=== PATIENT | male | born 1965 | race Caucasian/White ===

== ENCOUNTER 2024-04-19 13:46 | Emergency (ER) | payer MEDICAID ==
[2024-04-19 14:09] VITALS: TEMP 98
--- NOTE | 2024-04-19 14:10 | ERPHSYRPT ---
- History of Present Illness Time Seen by Provider: 04/19/24 14:10 Source: patient Exam Limitations: no limitations Patient Subjective Stated Complaint: C/O head injury. Patient indicates that he fell on the ice about 2 weeks ago and hit his head; denies loss of conciousness. States he fell again last weekend and hit his head again; still denies loss of conciousness. States he has been having increased agitation, mood swings, head aches since the falls have taken place. Triage Nursing Assessment: Patient ambulated back to ER without difficulties. He is alert and oriented. No SOB. Skin tone normal. LARSEN WNL. Physician History: This is a 58-year-old white male patient who arrives by private vehicle and does not have a primary care provider. Documentation on the chart with the complaint of headache, agitation, mood swings intermittently over the last 2 weeks. 2 weeks ago, patient slipped on ice and fell hitting the back of his head. He does report some bleeding from his nose at that time and nasal congestion. He did not lose consciousness. Last week, patient tripped and fell and hit the back of his head. Since that time he has had the above-stated symptoms. Patient took an ibuprofen and a muscle relaxer prior to arrival. Patient is on trazodone he has a history of hypothyroidism. He denies chest pain. He denies shortness of breath. He has no abdominal pain. He has no extremity pain. Occurred: other (Fell and hit his head twice in the last couple weeks) Reason for Fall: slipped, tripped Injuries/Pain Location: head Loss of Consciousness: no loss of consciousness Quality: aching (Headache) Severity of Pain-Max: mild Severity of Pain-Current: mild Associated Symptoms (Fall): headache, other (Mildly agitated, mood swings. These are new symptoms for him in the last couple weeks after his fall), No confusion, No chest pain, No vision changes Allergies/Adverse Reactions: bee venom protein (honey bee) Allergy (Verified 04/19/24 13:55) Home Medications: Levothyroxine Sodium 50 Mcg [Synthroid 50 Mcg] 50 mcg PO CLARIFY 04/19/24 [History] Trazodone HCl 50 mg [Desyrel 50 mg] 50 mg PO HS 04/19/24 [History] Hx Influenza Vaccination/Date Given: No Hx Pneumococcal Vaccination/Date Given: No Immunizations Up to Date: No Travel Risk - International Travel Have you traveled outside of the country in past 3 weeks: No - Emerging Infectious Disease Are you exhibiting symptoms associated with any current EIDs: No - Review of Systems Constitutional: No Symptoms Eyes: No Symptoms Ears, Nose, & Throat: No Symptoms Respiratory: No Symptoms Cardiac: No Symptoms Abdominal/Gastrointestinal: No Symptoms Genitourinary Symptoms: No Symptoms Skin: No Symptoms Neurological: Headache, Irritability Psychological: No Symptoms Endocrine: No Symptoms Hematologic/Lymphatic: No Symptoms Immunological/Allergic: No Symptoms All Other Systems: Reviewed and Negative - Past Medical History Pertinent Past Medical History: Yes Endocrine Medical History: Hypothyroidism GI Medical History: GERD Other Medical History: Insomnia, throat CA, pinched nerve in cervical spine, "flap that doesn't close all the way in my esophagus." - Past Surgical History Past Surgical History: Yes Musculoskeletal: Other Other Surgical History: neck surgery X 2, toe to right foot X 3, right ankle with a plate/hardware in it, power port placed and removed, peg tube placed and removed. - Social History Smoking Status: Never smoker - Social Determinants of Health Will the patient participate in the screening: Declined to provide - Nursing Vital Signs Nursing Vital Signs: Initial Vital Signs Temperature 98 F 04/19/24 13:57 Pulse Rate 90 04/19/24 13:57 Respiratory Rate 16 04/19/24 13:57 Blood Pressure 186/106 04/19/24 13:57 O2 Sat by Pulse Oximetry 98 04/19/24 13:57 Pain Scale Pain Intensity 0 - Jarrod Coma Score Best Eye Response (Jarrod): (4) open spontaneously Best Verbal Response ([place]): (5) oriented Best Motor Response (Jarrod): (6) obeys commands [place] Total: 15 - Physical Exam General Appearance: no apparent distress, alert Head Injury: no evidence of injury Eye Exam: PERRL/EOMI, eyes nml inspection ENT Exam: airway nml, nml ext.inspection Neck Exam: supple, trachea midline, full range of motion, normal alignment, normal inspection Respiratory/Chest Exam: No chest tenderness, No respiratory distress Gastrointestinal Exam: No tenderness Rectal Exam: not done Back Exam: normal inspection, normal range of motion, No CVA tenderness, No vertebral tenderness Extremity Exam: normal inspection, normal range of motion, pelvis stable Neurologic Exam: alert, oriented x 3, cooperative, director of solutions architecture II-XII nml as tested, nml cerebellar function, nml station & gait, sensation nml Skin Exam: normal color, warm, dry SpO2 Interpretation: normal SpO2: 98 O2 Delivery: Room Air - Course Nursing assessment & vital signs reviewed: Yes Ordered Tests: Active Orders 24 hr Category Date Time Status CERVICAL SPINE WO CONTRAST [CT] Stat Exams 04/19/24 14:20 Completed HEAD WITHOUT CONTRAST [CT] Stat Exams 04/19/24 14:20 Completed CBC W DIFF Stat Lab 04/19/24 14:36 Completed CMP Stat Lab 04/19/24 14:36 Completed MAG [MAGNESIUM] Stat Lab 04/19/24 14:36 Completed UA W/RFX UR CULTURE Stat Lab 04/19/24 14:33 Completed Urine Triage Profile Stat Lab 04/19/24 14:33 Completed Lab/Rad Data: Laboratory Result Diagrams 04/19/24 14:36 04/19/24 14:36 Laboratory Results 04/19/24 04/19/24 04/19/24 Range/Units 14:36 14:36 14:33 WBC 4.0 L (4.23-9.07) x10^3/uL RBC 4.83 (4.63-6.08) x10^6/uL Hgb 14.1 (13.7-17.5) g/dL Hct 41.2 (40.1-51.0) % MCV 85.3 (79.0-92.2) fL MCH 29.2 (25.7-32.2) pg MCHC 34.2 (32.3-36.5) g/dL RDW 12.8 (11.6-14.4) % Plt Count 166 (163-337) x10^3/uL MPV 10.5 (9.4-12.4) fL Gran % 61.7 (34.0-67.9) % Immature Gran % (Auto) 0.8 H (0.001-0.429) % Nucleat RBC Rel Count 0.0 (0.00-0.2) % Eos # (Auto) 0.05 (0.04-0.54) x10^3/uL Immature Gran # (Auto) 0.03 (0.001-0.031) x10^3u/L Absolute Lymphs (auto) 0.69 L (1.32-3.57) x10^3/uL Absolute Monos (auto) 0.72 (0.30-0.82) x10^3/uL Absolute Nucleated RBC 0.00 (0.00-0.012) x10^3u/L Lymphocytes % 17.5 L (21.8-53.1) % Monocytes % 18.2 H (5.3-12.2) % Eosinophils % 1.3 (0.8-7.0) % Basophils % 0.5 (0.2-1.2) % Absolute Granulocytes 2.44 (1.78-5.38) x10^3/uL Basophils # 0.02 (0.01-0.08) x10^3/uL Sodium 143 (135-145) mmol/L Potassium 3.8 (3.5-5.1) mmol/L Chloride 105 (98-107) mmol/L Carbon Dioxide 29 (22-30) mmol/L Anion Gap 13.0 (5-15) MEQ/L BUN 11 (9-20) mg/dL Creatinine 0.77 (0.66-1.25) mg/dL Estimated GFR 104.4 ML/MIN Glucose 91 (74-106) mg/dL Calcium 9.2 (8.4-10.2) mg/dL Magnesium 2.1 (1.6-2.3) mg/dL Total Bilirubin 0.80 (0.2-1.3) mg/dL AST 36 (17-59) U/L ALT 39 (0-50) U/L Alkaline Phosphatase 82 (38-126) U/L Serum Total Protein 6.8 (6.3-8.2) g/dL Albumin 4.2 (3.5-5.0) g/dL Urine Color (Yellow) Urine Appearance (Clear) Urine pH (4.6-8.0) Ur Specific [place] (1.005-1.030) Urine Protein (Negative) Urine Glucose (UA) (Negative) mg/dL Urine Ketones (Negative) Urine Blood (Negative) Urine Nitrite (Negative) Urine Bilirubin (Negative) Urine Urobilinogen (0.2) mg/dL Ur Leukocyte Esterase (Negative) U Hyaline Cast (Auto) (0-2) /LPF Urine Microscopic RBC (0-5) /HPF Urine Microscopic WBC (0-5) /HPF Ur Epithelial Cells (None Seen) /HPF Urine Bacteria (None Seen) /HPF Urine Culture Reflexed (NO) Urine Opiates Level NEGATIVE (NEGATIVE) Ur Methadone NEGATIVE (NEGATIVE) Urine Barbiturates NEGATIVE (NEGATIVE) Ur Phencyclidine (PCP) NEGATIVE (NEGATIVE) Urine Amphetamine NEGATIVE (NEGATIVE) U Benzodiazepine Level NEGATIVE (NEGATIVE) Urine Cocaine NEGATIVE (NEGATIVE) Urine Marijuana (THC) NEGATIVE (NEGATIVE) 04/19/24 Range/Units 14:33 WBC (4.23-9.07) x10^3/uL RBC (4.63-6.08) x10^6/uL Hgb (13.7-17.5) g/dL Hct (40.1-51.0) % MCV (79.0-92.2) fL MCH (25.7-32.2) pg MCHC (32.3-36.5) g/dL RDW (11.6-14.4) % Plt Count (163-337) x10^3/uL MPV (9.4-12.4) fL Gran % (34.0-67.9) % Immature Gran % (Auto) (0.001-0.429) % Nucleat RBC Rel Count (0.00-0.2) % Eos # (Auto) (0.04-0.54) x10^3/uL Immature Gran # (Auto) (0.001-0.031) x10^3u/L Absolute Lymphs (auto) (1.32-3.57) x10^3/uL Absolute Monos (auto) (0.30-0.82) x10^3/uL Absolute Nucleated RBC (0.00-0.012) x10^3u/L Lymphocytes % (21.8-53.1) % Monocytes % (5.3-12.2) % Eosinophils % (0.8-7.0) % Basophils % (0.2-1.2) % Absolute Granulocytes (1.78-5.38) x10^3/uL Basophils # (0.01-0.08) x10^3/uL Sodium (135-145) mmol/L Potassium (3.5-5.1) mmol/L Chloride (98-107) mmol/L Carbon Dioxide (22-30) mmol/L Anion Gap (5-15) MEQ/L BUN (9-20) mg/dL Creatinine (0.66-1.25) mg/dL Estimated GFR ML/MIN Glucose (74-106) mg/dL Calcium (8.4-10.2) mg/dL Magnesium (1.6-2.3) mg/dL Total Bilirubin (0.2-1.3) mg/dL AST (17-59) U/L ALT (0-50) U/L Alkaline Phosphatase (38-126) U/L Serum Total Protein (6.3-8.2) g/dL Albumin (3.5-5.0) g/dL Urine Color Yellow (Yellow) Urine Appearance Clear (Clear) Urine pH 6.0 (4.6-8.0) Ur Specific [place] 1.015 (1.005-1.030) Urine Protein Negative (Negative) Urine Glucose (UA) Negative (Negative) mg/dL Urine Ketones Negative (Negative) Urine Blood Negative (Negative) Urine Nitrite Negative (Negative) Urine Bilirubin Negative (Negative) Urine Urobilinogen 0.2 (0.2) mg/dL Ur Leukocyte Esterase Negative (Negative) U Hyaline Cast (Auto) NONE SEEN (0-2) /LPF Urine Microscopic RBC 0-2 (0-5) /HPF Urine Microscopic WBC 0-2 (0-5) /HPF Ur Epithelial Cells None Seen (None Seen) /HPF Urine Bacteria None Seen (None Seen) /HPF Urine Culture Reflexed NO (NO) Urine Opiates Level (NEGATIVE) Ur Methadone (NEGATIVE) Urine Barbiturates (NEGATIVE) Ur Phencyclidine (PCP) (NEGATIVE) Urine Amphetamine (NEGATIVE) U Benzodiazepine Level (NEGATIVE) Urine Cocaine (NEGATIVE) Urine Marijuana (THC) (NEGATIVE) - Progress Progress: unchanged Progress Note: 04/19/24 14:36 My medical decision making of the assignment of moderate complexity to this patient's medical issue today is based on review of the patient's past medical history, review of the patient's medication list, reviewed patient drug allergy list, history present illness and physical findings on examination. The workup in this patient includes CBC, CMP, magnesium level, urinalysis, urine drug screen, alcohol level. In addition, we ordered a CT scan of the head and CT scan of the cervical spine, both without contrast. Differential diagnosis includes but is not limited to electrolyte abnormalities, dehydration, positive urine drug screen, urinary tract infection, electrolyte abnormalities, acute intracranial abnormality, cervical spine fracture/subluxation versus cervical spine strain 04/19/24 15:[address] scan of the head without contrast was interpreted by the radiologist and I reviewed the impression. Impression states remote lacunar infarct right thalamus. Minimal paranasal sinus disease. The remainder of the CT scan of the head without contrast is negative. The CT scan of the cervical spine without contrast was interpreted by the radiologist and I reviewed the impression. The impression states paraspinous muscle spasm. C5-C7 degenerative changes. Bilateral carotid calcifications present. The above findings were discussed with the patient. Counseled pt/family regarding: lab results, diagnosis, need for follow-up, rad results - Departure Departure Disposition: Home Clinical Impression: Postconcussion syndrome Condition: Stable Critical Care Time: No Referrals: SCREEN,DRUG [NON-STAFF PHY W/O PRIVILEGES] - Follow up/PCP as directed Additional Instructions: Drink plenty of fluids. Take your medication as prescribed. Use Tylenol and ibuprofen for pain control. Call your primary care provider today, 04/19/2024, to make arranges for follow-up appointment for further evaluation management.
[2024-04-19 14:37] LABS: Absolute Neutrophil Ct (ANC) 2.44 x10^3/uL (1.78-5.38); BASOPHIL % 0.5 % (0.2-1.2); Basophil (Absolute #) 0.02 x10^3/uL (0.01-0.08); Eosinophil % 1.3 % (0.8-7.0); Eosinophil (Absolute #) 0.05 x10^3/uL (0.04-0.54); Hematocrit 41.2 % (40.1-51.0); Hemoglobin 14.1 g/dL (13.7-17.5); IMMATURE GRAN # 0.03 x10^3u/L (0.001-0.031); IMMATURE GRAN % 0.8 % (0.001-0.429); Lymphocyte (Absolute #) 0.69 x10^3/uL (1.32-3.57); Lymphocytes % 17.5 % (21.8-53.1); Mean Cell Volume 85.3 fL (79.0-92.2); Mean Corpuscular Hemoglobin 29.2 pg (25.7-32.2); Mean Corpuscular Hgb Concent. 34.2 g/dL (32.3-36.5); Mean Platelet Volume 10.5 fL (9.4-12.4); Monocyte (Absolute #) 0.72 x10^3/uL (0.30-0.82); Monocytes % 18.2 % (5.3-12.2); Neutrophil % 61.7 % (34.0-67.9); Platelet Count 166 x10^3/uL (163-337); Red Blood Count 4.83 x10^6/uL (4.63-6.08); Red Cell Distribution Width 12.8 % (11.6-14.4)
[2024-04-19 14:53] LABS: Appearance Clear (Clear); Bacteria None Seen /HPF (None Seen); Bilirubin Negative (Negative); Blood Negative (Negative); Epithelial Cells None Seen /HPF (None Seen); Glucose, Urine Negative (Negative); Hyaline Casts NONE SEEN /LPF (0-2); Ketones Negative (Negative); Leukocyte Esterase Negative (Negative); Nitrite Negative (Negative); Protein,Urine Dip Negative (Negative); RBC 0-2 /HPF (0-5); Specific Gravity 1.015 (1.005-1.030); Urobilinogen 0.2 mg/dL (0.2); WBC 0-2 /HPF (0-5)
[2024-04-19 15:02] LABS: ALBUMIN 4.2 g/dL (3.5-5.0); BILIRUBIN,TOTAL 0.8 mg/dL (0.2-1.3); Calcium 9.2 mg/dL (8.4-10.2); Creatinine 1 0.77 mg/dL (0.66-1.25); EST GLOMERULAR FILTRATION RATE 104.4 ML/MIN; MAGNESIUM 2.1 mg/dL (1.6-2.3); Potassium 3.8 mmol/L (3.5-5.1); Total Protein 6.8 g/dL (6.3-8.2)
--- NOTE | 2024-04-19 15:08 | XRAY ---
Indication: Status post fall 2 weeks ago. Multiple contiguous axial images obtained through the head without contrast. Comparison: None Age-appropriate global atrophy. Remote lacunar infarct right thalamus. No acute intracranial hemorrhage, abnormal extra-axial fluid collection, or mass effect. Fourth ventricle is midline without hydrocephalus. Hutchins-white matter differentiation preserved. Bony calvarium intact. Minimal mucosal thickening both ethmoid sinuses without fluid leveling. Mastoid air cells are clear. Impression: Remote lacunar infarct right thalamus. Minimal paranasal sinus disease. Remaining CT head without contrast exam is negative.
--- NOTE | 2024-04-19 15:10 | XRAY ---
Indication: Status post fall 2 weeks ago. Multiple contiguous axial images obtained through cervical spine. Sagittal and coronal reformatted images obtained. Comparison: None Osseous structures demineralized consistent with patient's age. Axial images negative for acute fracture, suspicious bony lesions, or spinal canal stenosis. Mild C5-C7 degenerative endplate spurring. Sagittal and coronal reformatted images demonstrates lordotic straightening, positional versus paraspinal spasm. C5-C7 disc space narrowing. No acute compression fracture, subluxation, or jumped facet. Normal appearing craniocervical junction. Visualized noncontrasted soft tissues demonstrates multiple left neck surgical clips and minimal bilateral carotid calcifications. Lung apices clear. Impression: 1. Lordotic straightening, positional versus paraspinal spasm. Negative for acute fracture/subluxation. 2. Chronic findings include osteopenia, C5-C7 degenerative disc disease, left neck postsurgical changes, and bilateral carotid calcifications.
[2024-04-19 15:25] VITALS: BP 148/110; PULSE 80; RESP 19
[2024-04-19 15:31] VITALS: O2SAT 98
[2024-04-19 15:43] LABS: Amphetamine,Urine NEGATIVE (NEGATIVE); Barbiturate,Urine NEGATIVE (NEGATIVE); Benzodiazepine,Urine NEGATIVE (NEGATIVE); Cocaine,Urine NEGATIVE (NEGATIVE); Methadone,Urine NEGATIVE (NEGATIVE); Opiate,Urine NEGATIVE (NEGATIVE); PCP,Urine NEGATIVE (NEGATIVE); THC,Urine NEGATIVE (NEGATIVE)
== END 2024-04-19 16:02 | disposition home or self-care (01) ==
LOC: ED 13:46
DX: R45.1 Restlessness and agitation (principal); G44.309 Post-traumatic headache, unspecified, not intractable; F07.81 Postconcussional syndrome; R45.86 Emotional lability; Z79.899 Other long term (current) drug therapy
CPT/HCPCS: 36415; 70450; 72125; 80053; 80307; 81001; 83735; 85025; 99284